=== PATIENT | male | born 1990 | race African-American/Black ===

== ENCOUNTER 2020-02-09 13:02 | Emergency (ER) | payer SELFPAY ==
[~2020-02-09] VITALS: Ht 182.9 cm; Wt 99.8 kg
[2020-02-09 13:52] VITALS: BP 148/100
[2020-02-09 15:29] LABS: Basophils # (auto) 0 10 ^3/uL (0-0.2); Basophils % (auto) 0.4 % (0.0-2.0); Eosinophils # (auto) 0 10 ^3/uL (0-0.8); Eosinophils % (auto) 0.2 % (0.0-7.0); Hematocrit 41.6 % (41.0-53.0); Hemoglobin 13.8 g/dL (13.5-17.5); Lymphocytes # (auto) 1.6 10 ^3/uL (0.4-5.4); Lymphocytes % (auto) 17.1 % (10.0-50.0); Mean Corpuscular Hemoglobin 28.5 pg (28.0-32.0); Mean Corpuscular Hgb Conc. 33.3 g/dL (32.0-36.0); Mean Corpuscular Volume 85.7 fL (80.0-100.0); Monocytes # (auto) 0.7 10 ^3/uL (0-1.3); Neutrophils # (auto) 6.8 10 ^3/uL (1.6-8.6); Neutrophils % (auto) 74.3 % (37.0-80.0); Nucleated Red Blood Cells % 0.1 %; Platelet Count (auto) 197 10^3/uL (140-450); Red Blood Cells 4.85 10^6/uL (4.5-5.90); Red Cell Distribution Width 15.5 % (11.8-14.3); White Blood Cell 9.1 10^3/uL (4.4-10.8)
[2020-02-09 15:48] LABS: Albumin 4.1 g/dL (3.4-5.0); Anion Gap 6 (5-15); Blood Alcohol < 3.0 mg/dL (0-5); Blood Urea Nitrogen 11 mg/dL (7-18); Carbon Dioxide 26 mmol/L (21-32); Chloride 104 mmol/L (98-107); Glucose 94 mg/dL (74-106); Potassium 3.9 mmol/L (3.5-5.1); Sodium 136 mmol/L (136-145)
[2020-02-09 15:49] LABS: Salicylate 1.9 mg/dL (2.8-20.0)
[2020-02-09 15:52] LABS: Alanine Aminotransferase 38 U/L (16-61); Alkaline Phosphatase 106 U/L (45-117); Aspartate Aminotransferase 32 U/L (15-37); Bilirubin, Total 0.6 mg/dL (0.2-1.0); GFR African American 102 mL/min; GFR Non-African American 84 mL/min; Total Protein 7.8 g/dL (6.4-8.2)
[2020-02-09 16:03] LABS: Acetaminophen < 2.0 ug/mL (10-30)
== END 2020-02-09 22:20 | disposition left against medical advice (07) ==
LOC: EDBD 13:02 → ER 13:02
DX: R45.851 Suicidal ideations (principal); F31.9 Bipolar disorder, unspecified; F23 Brief psychotic disorder; Z59.0 Homelessness
CPT/HCPCS: 36415; 80053; 80320; 80329; 85025